=== PATIENT | male | born 1985 | race Two or more races ===

== ENCOUNTER 2018-10-06 11:50 | Emergency (ER) | payer OTHER ==
[~2018-10-06] VITALS: Ht 172.7 cm; Wt 79.0 kg
[2018-10-06] MEDS ORDERED: DEXT10TA4 PO (12:00)
[2018-10-06] MEDS ORDERED: ALPR1TAB2 PO (12:00)
[2018-10-06 12:31] LABS: BASOPHILS % 0.4 % (0.0-2.0); EOSINOPHILS % 5.9 % (0.0-5.0); HEMATOCRIT. 37.9 % (42.0-52.0); LYMPHOCYTES % 33.8 % (20.0-50.0); MEAN CORPUSCULAR HEMOGLOBIN 31.1 pg (28.0-32.0); MEAN CORPUSCULAR VOLUME 90.7 fL (80.0-94.0); MEAN PLATELET VOLUME 9.2 fl (7.4-10.4); MONOCYTES % 8.5 % (2.0-8.0); NEUTROPHILS % 51.4 % (40.0-76.0); PLATELET 187 x1000/uL (130-400); RED BLOOD CELL COUNT 4.18 mill/uL (4.7-6.1); RED CELL DISTRIBUTION WIDTH 13.5 % (11.6-14.6)
[2018-10-06 12:36] LABS: CHLORIDE 104 mEq/L (98-107)
[2018-10-06 12:40] LABS: ETHANOL BLOOD < 10 mg/dL
[2018-10-06 15:57] VITALS: BP 110/65
== END 2018-10-06 15:59 | disposition home or self-care (01) ==
LOC: ER 11:50
DX: T42.4X1A Poisoning by benzodiazepines, accidental (unintentional), initial encounter (principal); R03.0 Elevated blood-pressure reading, without diagnosis of hypertension; Y93.89 Activity, other specified; Y92.018 Other place in single-family (private) house as the place of occurrence of the external cause
CPT/HCPCS: 36415; 80307; 80320; 80329; 99283; G0480

== ENCOUNTER 2025-02-09 21:34 | Emergency (ER) | payer MEDICAID, OTHER ==
[~2025-02-09] VITALS: Ht 175.3 cm; Wt 52.0 kg
[~2025-02-09 21:34] MED LIST: ALPR1TAB2 PO; DEXT10TA4 PO
[2025-02-09 21:39] VITALS: BP 114/78; PULSE 110; RESP 16; TEMP 36.8; O2SAT 100
[2025-02-10 00:06] LABS: BASOPHILS % 0.2 % (0.0-2.0); EOSINOPHILS % 1.2 % (0.0-5.0); HEMATOCRIT. 35.7 % (42.0-52.0); HEMOGLOBIN. 12.1 g/dL (14.0-18.0); LYMPHOCYTES % 23.8 % (20.0-50.0); MEAN PLATELET VOLUME 9.7 fl (7.4-10.4); MONOCYTES % 7.9 % (2.0-8.0); NEUTROPHILS % 66.9 % (40.0-76.0); PLATELET 182 x1000/uL (130-400); RED BLOOD CELL COUNT 4.03 mill/uL (4.7-6.1); RED CELL DISTRIBUTION WIDTH 12.8 % (11.6-14.6)
[2025-02-10 00:19] LABS: CREATININE 0.9 mg/dL (0.6-1.3); ETHANOL BLOOD < 10 mg/dL (<10); UREA NITROGEN BLOOD 12 mg/dL (9-23)
== END 2025-02-10 03:38 | disposition home or self-care (01) ==
LOC: ER 21:34
DX: R41.82 Altered mental status, unspecified (principal); F32.A Depression, unspecified; F10.90 Alcohol use, unspecified, uncomplicated; Z79.899 Other long term (current) drug therapy; Y90.9 Presence of alcohol in blood, level not specified
CPT/HCPCS: 36415; 80048; 80307; 80320; 80329; 85025; 99283; G0480